=== PATIENT | male | born 1995 | race Caucasian/White ===

== ENCOUNTER 2017-12-05 17:47 | Emergency (ER) | payer SELFPAY ==
[2017-12-05 18:16] LABS: Bilirubin Negative (Negative); Blood, Urine Negative (Negative); Clarity CLOUDY (Clear); Glucose, Urine (Dipstick) Negative (Negative); Leukocyte Large (Negative); Nitrite Negative (Negative); Protein, Urine (Dipstick) Trace mg/dL (Neg-Trace); Specific Gravity, Urine 1.025 (1.002-1.036)
[2017-12-05 18:19] LABS: Bacteria/HPF None Seen HPF (None Seen); Hyaline Casts/LPF 0-3 HYALINE CAST LPF (0-3 Hyaline); Pathc Cast-AUWi Flag 0.14 (0-2.49); Squamous Epithelial None Seen HPF (0-3)
[2017-12-05] MEDS ORDERED: cefTRIAXone\\ROCEPHIN 250 MG VIAL ONE (18:49)
[2017-12-05] MEDS ORDERED: Azithromycin 250 MG TAB ONE (18:49)
[2017-12-05] MEDS ORDERED: Lidocaine 1% (PF) 30 ML VIAL ONE (18:50)
== END 2017-12-05 19:10 | disposition home or self-care (01) ==
LOC: ERS 17:47
DX: A64 Unspecified sexually transmitted disease (principal); F17.210 Nicotine dependence, cigarettes, uncomplicated
CPT/HCPCS: 81003; 81015; 87491; 87591; 96372; J0696; J2001

== ENCOUNTER 2018-02-07 21:54 | Emergency (ER) | payer SELFPAY ==
[2018-02-07] MEDS ORDERED: Adacel (T-DAP) 0.5 ML SYRINGE ONE (23:03)
[2018-02-07] MEDS ORDERED: Bacitracin Zinc 1 Packet ONE (23:08)
== END 2018-02-07 23:45 | disposition home or self-care (01) ==
LOC: ERS 21:54
DX: S01.511A Laceration without foreign body of lip, initial encounter (principal); S01.512A Laceration without foreign body of oral cavity, initial encounter; F17.210 Nicotine dependence, cigarettes, uncomplicated; S00.83XA Contusion of other part of head, initial encounter; S60.512A Abrasion of left hand, initial encounter; S60.511A Abrasion of right hand, initial encounter; Z23 Encounter for immunization; Y04.0XXA Assault by unarmed brawl or fight, initial encounter
CPT/HCPCS: 12011; 90471; 90715